=== PATIENT | female | born 1995 | race Caucasian/White ===

== ENCOUNTER 2020-04-04 12:53 | Inpatient (IN) | payer OTHER ==
[2020-04-04 14:03] LABS: BASO % 0.2 % (0-2.0); EOS % 0.3 % (0-4.5); HEMATOCRIT 37.5 % (32.4-45.2); HEMOGLOBIN 12.2 GM/dL (10.7-15.3); LYMPH % 15.1 % (8-40); MCH 27.9 pg (25.7-33.7); MCHC 32.5 g/dl (32.0-36.0); MEAN CELL VOLUME 85.7 fl (80-96); MEAN PLT VOLUME 8.9 fl (7.5-11.1); MONO % 4.4 % (3.8-10.2); PLATELET COUNT 223 K/MM3 (134-434); RBC 4.37 M/mm3 (3.60-5.2); WHITE BLOOD COUNT 10.6 K/mm3 (4.0-10.0)
[2020-04-04 14:09] LABS: INR 0.87 (0.83-1.09); PROTHROMBIN TIME (PATIENT) 10.7 SEC (9.7-13.0)
[2020-04-04 14:11] LABS: ACTIVATED PTT 29.8 SECONDS (25.2-36.5)
[2020-04-04 14:12] VITALS: BMI 35.7
[2020-04-04] MEDS ORDERED: PROMETHAZINE HCL 25 MG/1 ML VIAL IVPUSH ONE (14:18)
[2020-04-04] MEDS ORDERED: BUTORPHANOL TARTRATE 1 MG/ML VIAL IVPB ONE (14:18)
[2020-04-04 14:25] LABS: POTASSIUM 3.9 mmol/L (3.5-5.1)
[2020-04-04 14:27] LABS: BLOOD UREA NITROGEN 10.7 mg/dL (7-18); CALCIUM 8.5 mg/dL (8.5-10.1)
[2020-04-04] MEDS ORDERED: ELECTROLYTE-148 SOLN 1,000 ML IV SCH (14:30)
[2020-04-04 14:31] LABS: CREATININE 0.6 mg/dL (0.55-1.3)
[2020-04-04] MEDS ORDERED: OXYTOCIN 20 UNITS in 0.9% NS 20 UNIT/1,000 ML INFUS.BAG IV ONE ×2 (15:06→17:28)
[2020-04-04] MEDS ORDERED: BENZOCAINE 20% 57 GM BOTTLE TP PRN (15:49)
[2020-04-04] MEDS ORDERED: WITCH HAZEL 50% (TUCKS) 40 PAD/JAR PAD TP PRN (15:49)
[2020-04-04] MEDS ORDERED: oxyCODONE HCL 5 MG TABLET PO PRN (15:49)
[2020-04-04] MEDS ORDERED: BENZOCAINE 28 GM HEMORRHOIDAL OINTMENT TP PRN (15:49)
[2020-04-04] MEDS ORDERED: METHYLERGONOVINE MALEATE 0.2 MG/1 ML AMP IM PRN (15:49)
[2020-04-04] MEDS ORDERED: BISACODYL 10 MG SUPP.RECT RC PRN (15:49)
[2020-04-04] MEDS: IBUPROFEN 600 MG TABLET (FP) PO PRN ×2 (15:55→22:06)
[2020-04-04] MEDS: ACETAMINOPHEN 325 MG TABLET (FP) PO PRN ×2 (15:55→22:06)
[2020-04-04] MEDS ORDERED: OXYTOCIN 20 UNITS in 0.9% NS 20 UNIT/1,000 ML INFUS.BAG IV SCH (16:00)
[2020-04-04] MEDS: FERROUS SO4 325 MG TABLET (FP) PO SCH (17:17)
[2020-04-05] MEDS: IBUPROFEN 600 MG TABLET (FP) PO PRN ×2 (07:06→21:59)
[2020-04-05] MEDS: FERROUS SO4 325 MG TABLET (FP) PO SCH ×2 (07:06→17:36)
[2020-04-05] MEDS: ACETAMINOPHEN 325 MG TABLET (FP) PO PRN ×2 (07:07→21:58)
[2020-04-05 07:59] LABS: BASO % 0.3 % (0-2.0); EOS % 0.5 % (0-4.5); HEMATOCRIT 28.8 % (32.4-45.2); HEMOGLOBIN 9.3 GM/dL (10.7-15.3); LYMPH % 30.5 % (8-40); MCH 27.9 pg (25.7-33.7); MCHC 32.4 g/dl (32.0-36.0); MEAN PLT VOLUME 9.2 fl (7.5-11.1); MONO % 7.5 % (3.8-10.2); NEUT % 61.2 % (42.8-82.8); PLATELET COUNT 202 K/MM3 (134-434); RBC 3.34 M/mm3 (3.60-5.2); RDW 15.8 % (11.6-15.6); WHITE BLOOD COUNT 8.4 K/mm3 (4.0-10.0)
[2020-04-05] MEDS: PRENATAL VITAMINS W/ FOLIC ACID TABLET (FP) PO SCH (10:17)
[2020-04-05] MEDS ORDERED: SENNOSIDES/DOCUSATE COMBO (SENNA PLUS) TABLET (UD) PO PRN (22:00)
[2020-04-06 10:19] VITALS: BP 110/73; PULSE 67; TEMP 97.5
[2020-04-06] MEDS: FERROUS SO4 325 MG TABLET (FP) PO SCH (10:26)
[2020-04-06] MEDS: PRENATAL VITAMINS W/ FOLIC ACID TABLET (FP) PO SCH (10:26)
== END 2020-04-06 13:35 | disposition home or self-care (01) | DRG 560 ==
LOC: JDEL 12:53 → JLDR 13:30 → J3W 17:45
PROVIDERS: ADMIT Obstetrics & Gynecology; ATTEND Obstetrics & Gynecology
PROC: 0W8NXZZ Division of Female Perineum, External Approach (ICD-10-PCS; principal; 2020-04-04)
PROC: 0HQ9XZZ Repair Perineum Skin, External Approach (ICD-10-PCS; 2020-04-04)
DX: O69.89X0 Labor and delivery complicated by other cord complications, not applicable or unspecified (principal); O99.214 Obesity complicating childbirth; E66.9 Obesity, unspecified; O70.0 First degree perineal laceration during delivery; Z3A.38 38 weeks gestation of pregnancy; Z37.0 Single live birth
CPT/HCPCS: 36415; 59409; 80048; 85025; 85610; 85730; 86780; 86850; 86900; 86901; C9803; U0003

== ENCOUNTER 2021-07-13 00:49 | Emergency (ER) | payer OTHER ==
[2021-07-13 00:58] VITALS: BP 107/69; PULSE 67; TEMP 97.6; BMI 35.2
[2021-07-13] MEDS ORDERED: ACETAMINOPHEN 500 MG TABLET (FP) PO ONE (02:20)
[2021-07-13] MEDS ORDERED: LIDOCAINE 5% TOPICAL PATCH TP ONE (02:20)
[2021-07-13] MEDS ORDERED: KETOROLAC TROMETHAMINE 30 MG/1 ML VIAL IM ONE (02:26)
[2021-07-13] MEDS ORDERED: LIDOCAINE 5% TOPICAL PATCH ONE (02:37)
[2021-07-13] MEDS ORDERED: ACETAMINOPHEN 325 MG TABLET (FP) ONE (02:37)
[2021-07-13] MEDS ORDERED: KETOROLAC TROMETHAMINE 30 MG/1 ML VIAL ONE (02:37)
[2021-07-13] MEDS ORDERED: LIDOCAINE PATCH REMOVAL MC ONE (14:00)
== END 2021-07-13 03:59 | disposition home or self-care (01) ==
LOC: JER 00:49
PROC: 3E0233Z Introduction of Anti-inflammatory into Muscle, Percutaneous Approach (ICD-10-PCS; principal; 2021-07-13)
DX: M54.50 Low back pain, unspecified (principal)
CPT/HCPCS: 96372; 99284-25